=== PATIENT | female | born 1935 | race Caucasian/White ===

== ENCOUNTER → 2017-12-15 | Outpatient (CLI) | payer MEDICARE ==
--- NOTE | 2017-12-15 09:42 | RAD ---
Renal ultrasound with deep Doppler, 12/15/2017: History: Hypertension The right kidney measures 10.4 cm in length while the left kidney measures 9.6 cm. There are 2 simple cyst in the right kidney with the largest of these lying in the lower pole and measuring 2.9 cm. No left renal mass is seen. The renal parenchymal echogenicity is otherwise within normal limits. There is no evidence of hydronephrosis. The bladder is collapsed and not adequately delineated on these scans. Duplex interrogation of the main renal arteries was attempted including grayscale, color-flow and spectral Doppler analysis. The right main renal artery was well-visualized. The peak systolic velocity in the renal artery ranges from 42 to 45 cm/s. On the left, the origin of the renal artery from the aorta was obscured by overlying bowel gas. The peak systolic velocity in the mid to distal left renal artery ranges from 63 to 94 cm/s. No high renal artery velocities are seen on either side to suggest significant renal artery stenosis. No parvus/tardus phenomena is evident. IMPRESSION: 1. Small right renal cysts. 2. No duplex evidence of significant renal artery stenosis, although the left main renal artery origin was not clearly visualized due to overlying bowel.
== END | disposition home or self-care (01) ==
LOC: US 07:47
PROVIDERS: ATTEND Internal Medicine Nephrology
DX: I12.9 Hypertensive chronic kidney disease with stage 1 through stage 4 chronic kidney disease, or unspecified chronic kidney disease (principal); N18.3 Chronic kidney disease, stage 3 (moderate); N28.1 Cyst of kidney, acquired
CPT/HCPCS: 76770; 93975